=== PATIENT | male | born 1985 | race Caucasian/White ===

== ENCOUNTER 2016-04-25 10:52 | Day surgery (SDC) ==
[2016-04-25] MEDS ORDERED: KEFZOL 2 GM/D5W 50 ML ONE (11:28)
[2016-04-25] MEDS ORDERED: LR 1,000 ML ONE (11:28)
[2016-04-25] MEDS ORDERED: PEPCID ONE (12:39)
[2016-04-25] MEDS ORDERED: ZOFRAN ONE ×2 (12:39→14:00)
[2016-04-25] MEDS ORDERED: REGLAN ONE (12:39)
[2016-04-25] MEDS ORDERED: ROBINUL ONE ×2 (12:39→14:00)
[2016-04-25] MEDS ORDERED: FENTANYL ONE (13:39)
[2016-04-25] MEDS ORDERED: DIPRIVAN 1% ONE (13:40)
[2016-04-25] MEDS ORDERED: VERSED ONE (13:40)
[2016-04-25] MEDS ORDERED: NEOSTIGMINE ONE (14:00)
[2016-04-25] MEDS ORDERED: ZEMURON ONE (14:01)
[2016-04-25] MEDS ORDERED: XYLOCAINE-MPF 2% ONE (14:01)
[2016-04-25] MEDS ORDERED: QUELICIN (DOSE) ONE (14:01)
[2016-04-25] MEDS ORDERED: DILAUDID ONE (14:05)
[2016-04-25] MEDS ORDERED: PERCOCET-5 ONE (14:37)
[2016-04-25 15:02] VITALS: BP 147/94
--- NOTE | 2016-04-28 08:27 | Diag Imaging Result Document ---
PROCEDURE NAME: FLUROSCOPY CYSTO - 04/25/2016 RETROGRADE PYELOGRAM (13 IMAGES): FINDINGS: A stent was placed on the left by Dr. Posadas. No contrast was administered. IMPRESSION: Left ureteral stent placement.
--- NOTE | 2016-06-05 11:24 | OPERATIVE NOTE ---
PROCEDURE DATE: 04/25/2016 SURGEON: Dr. Tone Posadas. PREOPERATIVE DIAGNOSIS: Left mid ureteral stone, right distal ureteral stone, left flank pain. PRIMARY PROCEDURES: Cystoscopy, left diagnostic ureteroscopy with placement of 6-[place]-24 cm ureteral stent. INDICATIONS: 30-year-old male who presented with severe left flank pain. He underwent CT scan on 04/24/2016 which showed 3 mm left mid ureteral stone and 5 mm distal right ureteral stone. He denies right pain whatsoever. He desires intervention. FINDINGS: He had a very narrowed ureter making it impossible to get to the stone. Successful stent placement. PROCEDURE IN DETAIL: After obtaining informed consent, patient was brought to the operating room. Perioperative antibiotics and laryngeal mask anesthesia were administered. He was placed in lithotomy position prepped and draped in sterile fashion. A 21-[place] rigid cystoscope was used to gain access to the bladder, which was then examined in systematic fashion. He had no evidence of mucosal lesions, excessive trabeculations, diverticula or stones visible. We turned attention to the left ureteral orifice which was cannulated with a PTFE wire and advanced to the level of the renal pelvis. I then used the rigid ureteroscope and advanced it alongside of the wire. Approximately 2-3 cm into the ureteral orifice the caliber of the ureter became very narrow and I could not advance the scope much further. I did use another wire through the ureteroscope in an attempt to guide it in an easier way but again could never get to even the pelvic brim. After several attempts of advancing the ureteroscope it became apparent that it would not be safe and in order not to injure the ureter we elected to abort the procedure and placed ureteral stent with the plan for coming at a later date and addressing the stone after the stent had time for the ureter to dilate. Hence, the ureteroscope was withdrawn and a 6-[place], 24 cm ureteral stent was placed over the wire via the cystoscope with the proximal coil position confirmed fluoroscopically and distal coil directly visualized. The string was detached from the stent. The bladder was emptied, cystoscope was removed, he was extubated and taken to PACU for further recovery. ESTIMATED BLOOD LOSS: None. COMPLICATIONS: None. DISPOSITION: To PACU and subsequently home with prescriptions for pain medications and antibiotics.
== END 2016-04-25 15:30 | disposition home or self-care (01) ==
LOC: OR 10:52
PROVIDERS: ATTEND Urology
DX: N13.2 Hydronephrosis with renal and ureteral calculous obstruction (principal); R10.9 Unspecified abdominal pain; F17.210 Nicotine dependence, cigarettes, uncomplicated; Z87.442 Personal history of urinary calculi
CPT/HCPCS: 76000; C2617; J0330; J0690; J1170; J2250; J2405; J3010; J7120; J2710

== ENCOUNTER 2016-05-08 08:04 | Day surgery (SDC) ==
--- NOTE | 2016-05-07 19:53 | HISTORY AND PHYSICAL ---
HISTORY OF PRESENT ILLNESS: A 30-year-old male who presented on 04/24/2016 with left flank pain and CT findings of 30 mm left mid ureteral stone with hydronephrosis and perinephric stranding as well as a 5 mm right distal ureteral stone. He underwent cystoscopy, left diagnostic ureteroscopy, placement of a 6-[place]-24 cm ureteral stent on 04/25/2016. We original planned to retrieve the left mid ureteral stone, but he had extremely narrow ureter and I was unable to get to the stone, prompting the placement of the ureteral stent. He now presents to address both left ureteral stone, as well as the right distal ureteral stone. PAST MEDICAL HISTORY: Urolithiasis, chronic kidney disease. PAST SURGICAL HISTORY: 1. Foot surgery. 2. Cystoscopy, ureteroscopy, stent placement. HOME MEDICATIONS: None. ALLERGIES: None. FAMILY HISTORY: Negative for malignancies. SOCIAL HISTORY: Smoker, denies alcohol or drug use currently. PHYSICAL EXAMINATION: GENERAL: No acute distress. HEENT: Normocephalic, atraumatic. CARDIOVASCULAR: Regular rhythm. PULMONARY: Bilateral breath sounds. ABDOMEN: Protuberant, nontender to palpation. PLAN/ASSESSMENT: A 30-year-old male with left mid ureteral stone and right distal ureteral stone. He underwent ureteroscopy and left stent placement due to narrow ureter. We discussed cystoscopy, left ureteroscopy with laser lithotripsy, stone basket extraction, stent placement, right ureteroscopy with laser lithotripsy, stone basket extraction, stent placement. We discussed risks, including but not limited to bleeding, infection, injury to the bladder, injury to the ureters, injury to adjacent structures, inability to remove the stone and need for additional interventions. He voiced understanding and wished to proceed. PLAN: Cystoscopy, bilateral ureteroscopy with laser lithotripsy, stone basket extraction, possible stent placement.
[2016-05-08] MEDS ORDERED: LR 1,000 ML ONE ×2 (08:55→13:34)
[2016-05-08] MEDS ORDERED: PEPCID ONE (08:56)
[2016-05-08] MEDS ORDERED: KEFZOL 2 GM/D5W 50 ML ONE (08:56)
[2016-05-08] MEDS ORDERED: REGLAN ONE (08:56)
[2016-05-08 09:26] LABS: MANUAL DIFF NEEDED? NO
[2016-05-08 09:29] LABS: BASO% 0.4 % (0.0-0.8); EOS# 0.23 X1000 (0.0-0.7); HEMATOCRIT 43.8 % (42.0-52.0); HEMOGLOBIN 15.4 g/dL (14.0-18.0); LYMPH# 2.05 X1000 (1.2-3.4); LYMPH% 27.1 % (20.5-51.1); MCH 30.5 PG (27-31); MCHC 35.2 g/dL (33-37); MCV 86.7 FL (81-99); MONO# 0.54 X1000 (0.11-0.59); MONO% 7.1 % (1.7-9.3); MPV 10.1 FL (7.4-10.4); NEUT% 62.4 % (42.2-75.2); PLT 272 X1000 (130-400); RBC 5.05 XMIL (4.7-6.1)
[2016-05-08 10:07] LABS: AGAP 13; BUN 21 mg/dL (8-22); CALCIUM 9.2 mg/dL (8.8-10.2); CHLORIDE 103 mmol/L (98-107); COSMO 283; POTASSIUM 4.3 mmol/L (3.5-5.1); SODIUM 140 mmol/L (136-145); TCO2 24 mmol/L (25-35)
[2016-05-08] MEDS ORDERED: PERCOCET-10 ONE (12:40)
[2016-05-08 12:57] VITALS: BP 122/86
--- NOTE | 2016-05-08 13:11 | Diag Imaging Result Document ---
PROCEDURE NAME: FLUROSCOPY CYSTO - 05/08/2016 RETROGRADE PYELOGRAM, 56 IMAGES: FINDINGS: A stent was placed on the left by Dr. Posadas. A guidewire was passed on the right side. The previous stent placed on 04/25/2016 is replaced. IMPRESSION: Left ureteral stent replacement.
[2016-05-08] MEDS ORDERED: DIPRIVAN 1% ONE (13:12)
[2016-05-08] MEDS ORDERED: FENTANYL ONE (13:12)
[2016-05-08] MEDS ORDERED: ZOFRAN ONE (13:34)
[2016-05-08] MEDS ORDERED: XYLOCAINE-MPF 2% ONE (13:34)
[2016-05-08] MEDS ORDERED: DECADRON ONE (13:34)
--- NOTE | 2016-05-08 14:29 | OPERATIVE NOTE ---
PROCEDURE DATE: 05/08/2016 SURGEON: Tone Posadas MD PREOPERATIVE DIAGNOSES: 1. Left mid ureteral stone. 2. Left ureteral stent. 3. Hydronephrosis. 4. Flank pain. 5. Right ureteral stone. PROCEDURES: 1. Cystoscopy. 2. Left ureteral stent removal. 3. Left ureteroscopy with stone basket extraction, placement of 6-[place]izen [place]-24 cm ureteral stent. 4. Right ureteroscopy with laser lithotripsy. INDICATIONS: A 30-year-old male who presented with bilateral ureteral stone with significant left flank pain even though his left ureteral stone was only 3 mm and the right arm was 5 mm. He underwent attempted left ureteroscopy, however, due to very tight ureter we had to abort the procedure and place ureteral stent. He has had it now for 2 weeks. He presents for extraction of his left ureteral stone and to address right ureteral stone. FINDINGS: Left ureteral stone successfully extracted, right ureteral stone successfully laser lithotripsy, adequate left ureteral stent placement. DESCRIPTION OF PROCEDURE: After obtaining informed consent, patient was brought to the operative room. Perioperative antibiotics and laryngeal mask anesthesia were administered. He was placed in lithotomy position, prepped and draped in sterile fashion. A 21-Citizen [place] rigid cystoscope was used to gain access to the bladder. It was examined in a systematic fashion. He had no evidence of mucosal lesions, excessive trabeculations, diverticula noted. He did have ureteral stent emanating from the left orifice. It was secured with rigid graspers and brought out to the urethral meatus. I then advanced PTFE wire via the stent up to the level of the left renal pelvis. Following that, I introduced rigid ureteroscope and introduced it into the ureter along side of the wire. I had a hard time negotiating past the iliac vessels and hence switched to a flexible ureteroscope. I placed a second PTFE wire to the level of left renal pelvis and then back loaded the flexible ureteroscope onto it. The ureteroscope was advanced all the way to the level of the renal pelvis. I inspected the major and minor calices. He had several Shukri plaques, but no evidence of discrete stones. I then slowly retrieved the ureteroscope alongside of the ureter. There was significant mucosal edema from the stent in the area where mucosa was healing from previous surgery just over the iliac crest. At that point, we were able to see the ureteral stone, he was seen surrounded by heaping mucosa. A Nitinol basket was used to extract the stone. During inspection it broke into 2 pieces. Both of those were retrieved. Given the mucosal edema, we elected to place a 6-Citizen [place]-24 cm ureteral stent. This was done by advancing the stent over the wire with the proximal coil position confirmed fluoroscopically, distal coil directly visualized. The string was left attached to the stent. We then turned attention to the right ureteral orifice. It was cannulated with a PTFE wire as well. It was advanced into the right renal pelvis. Rigid ureteroscope was introduced and approximately 4 cm away from the ureteral orifice, there was a 5 mm stone. He also had a narrow ureter on that side and we used holmium laser with 273 micron laser fiber at energy settings of 10 hertz and 0.8 joules to break the stone up into small fragments. Those were extracted with a Nitinol basket and sent off for analysis. Following that, we elected not to place a ureteral stent. With repeat ureteroscopy there was no evidence of mucosal injury or significant edema. The bladder was emptied. Cystoscope was removed. He was extubated, taken to PACU for further recovery. ESTIMATED BLOOD LOSS: None. COMPLICATIONS: None. DISPOSITION: To PACU and subsequently home with prescriptions for Percocet 10 ( 25), Cipro 250 (10). He was instructed to remove the stent in 4 days, will followup in 4 weeks to review stone analysis. MTDLeny
== END 2016-05-08 13:13 | disposition home or self-care (01) ==
LOC: OR 08:04
PROVIDERS: ATTEND Urology
DX: N20.1 Calculus of ureter (principal); F17.210 Nicotine dependence, cigarettes, uncomplicated
CPT/HCPCS: 76000; 80048; 82360; 85025; 88300; C2617; J0690; J1100; J2405; J3010; J7120; Q9966